=== PATIENT | female | born 1975 | race Caucasian/White ===

== ENCOUNTER → 2016-02-26 | Outpatient (CLI) | payer OTHER ==
[2016-02-26 14:23] LABS: Non-African American GFR(MDRD) >60 (>60 ml/min/1.73 sqM)
== END | disposition home or self-care (01) ==
LOC: RADMRIMAIN 13:33
PROVIDERS: ATTEND Family Medicine
DX: R92.8 Other abnormal and inconclusive findings on diagnostic imaging of breast (principal); N18.9 Chronic kidney disease, unspecified
CPT/HCPCS: 36415; 82565

== ENCOUNTER → 2023-02-22 | Outpatient (CLI) | payer BC ==
--- NOTE | 2023-02-22 11:15 | MR ---
EXAMINATION TYPE: MR cervical spine wo con DATE OF EXAM: 02/22/2023 10:56 AM CLINICAL INDICATION:Female, 48 years old with history of M54.2 CERVICALGIA; M79.602, Neck pain, numbn ess/tingling left arm. COMPARISON: None. TECHNIQUE: Multi planar, multi sequence imaging was performed utilizing: T1-weighted, T2-weighted, an d turbo inversion recovery imaging of the cervical spine. IV Contrast: cc (none if empty) FINDINGS: Motion limits evaluation. Alignment: The cervical vertebral bodies have preserved heights. Alignment is within normal limits gi zackary patient positioning. Bones: Scattered Modic endplate changes with osteophytes and disc space narrowing. Multilevel degener ative disc disease is noted and most pronounced at the C5-C7 vertebral levels. Cord: The spinal cord is unremarkable with regards to their signal intensity and morphology. Discs: Multilevel disc desiccation is present. C2-C3: No significant disc pathology. The spinal canal is patent. No neural foraminal stenosis. C3-C4: No significant disc pathology. The spinal canal is patent. Bilateral facet and uncovertebral joint arthropathy are present with mild bilateral neural foraminal stenosis. C4-C5: No significant disc pathology. The spinal canal is patent. No neural foraminal stenosis. C5-C6: A disc osteophyte complex is present which minimally narrows the ventral subarachnoid space. Bilateral facet and uncovertebral joint arthropathy are present with moderate left and mild right ne ural foraminal stenosis. C6-C7: A disc osteophyte complex is present which minimally narrows the ventral subarachnoid space. Bilateral facet and uncovertebral joint arthropathy are present with moderate bilateral neural herberth inal stenosis. C7-T1: No significant disc pathology. The spinal canal is patent. No neural foraminal stenosis. Other: None. IMPRESSION: 1. No evidence for disc herniation or significant spinal canal stenosis. 2. Multilevel disc degeneration with associated osteoarthritic changes worse at C5-C7 with neural for aminal stenosis worse at C5-C6 the left with moderate and C6-C7 with moderate bilateral neural forami nal stenosis.
== END | disposition home or self-care (01) ==
LOC: RADMRIMAIN 10:22
PROVIDERS: ATTEND Family Medicine
DX: M47.812 Spondylosis without myelopathy or radiculopathy, cervical region (principal); M99.71 Connective tissue and disc stenosis of intervertebral foramina of cervical region; M50.323 Other cervical disc degeneration at C6-C7 level; M50.322 Other cervical disc degeneration at C5-C6 level; G58.9 Mononeuropathy, unspecified; R20.0 Anesthesia of skin; M79.602 Pain in left arm
CPT/HCPCS: 72141